=== PATIENT | female | born 1985 | race African-American/Black ===

== ENCOUNTER 2016-08-06 18:08 | Emergency (ER) | payer MEDICAID, OTHER ==
[~2016-08-06] VITALS: Ht 165.1 cm; Wt 128.4 kg
[2016-08-06 18:26] VITALS: BP 149/103
== END 2016-08-06 21:47 | disposition left against medical advice (07) ==
LOC: ER 18:15
DX: N93.9 Abnormal uterine and vaginal bleeding, unspecified (principal); Z53.21 Procedure and treatment not carried out due to patient leaving prior to being seen by health care provider